=== PATIENT | female | born 1980 | race Caucasian/White ===

== ENCOUNTER 2024-10-08 11:02 | Outpatient (CLI) | payer OTHER, SELFPAY ==
[2024-10-08 09:21] LABS: ALT 27 U/L (14-59); AST 18 U/L (15-37); Albumin 4.1 g/dL (3.4-5.0); Alkaline Phosphatase 69 U/L (46-116); Anion Gap 9.6 mmol/L (3-11); BUN 13 mg/dL (7-18); Bilirubin, Total 0.5 mg/dL (0.2-1.0); CO2 27.4 mmol/L (21.0-32.0); Calcium 8.9 mg/dL (8.5-10.1); Calculated LDL 194 mg/dL (<100); Chloride 103 mmol/L (98-107); Cholesterol 268 mg/dL (<200); Estimated GFR 109.30 (mL/min/1.73m2); Glucose 100 mg/dL (74-106); HDL Cholesterol 59 mg/dL (>or=50); Potassium 4.5 mmol/L (3.5-5.1); Sodium 140 mmol/L (136-145); Total Protein 7.7 g/dL (6.4-8.2); Triglyceride 76 mg/dL (<150)
== END 2024-10-08 11:03 | disposition home or self-care (01) ==
LOC: LBO 11:04
PROVIDERS: PCP Nurse Practitioner Family; Visit Provider Nurse Practitioner Family
DX: Z00.00 Encounter for general adult medical examination without abnormal findings (principal); K58.9 Irritable bowel syndrome, unspecified; N95.1 Menopausal and female climacteric states; G47.30 Sleep apnea, unspecified
CPT/HCPCS: 36415; 80053; 80061

== ENCOUNTER 2024-11-05 15:40 | Outpatient (REF) | payer OTHER, SELFPAY | END 2024-11-05 15:41 | disposition home or self-care (01) | LOC: LBN 15:40 | PROVIDERS: PCP Nurse Practitioner Family; Visit Provider Obstetrics & Gynecology | DX: Z12.4 Encounter for screening for malignant neoplasm of cervix (principal) | CPT/HCPCS: 88142; 87624 ==

== ENCOUNTER 2025-02-03 07:00 | Day surgery (SDC) | payer OTHER, SELFPAY ==
[2025-02-03 07:20] VITALS: BP 132/87; PULSE 81; RESP 16; TEMP 36.2; O2SAT 100
[2025-02-03] MEDS: Lactated Ringers 1,000 ML 80 ML IV (07:34)
[2025-02-03 08:07] VITALS: BMI 31.1
--- NOTE | 2025-02-03 08:07 | ANES.PREOP_ITS ---
General Info Date of Service Date Performed: 02/03/25 Height: 5 ft 7 in Weight: 90.3 kg Body Mass Index (BMI): 31.1 Surgical Procedure: Operation Date: 02/03/25 08:20 Proposed Procedure Side Surgeon avani Lou MD Meds Allergies and Home Medications Allergies Allergy/AdvReac Type Severity Reaction Status Date / Time No Known Allergies Allergy Verified 02/03/25 07:06 Home Medication ?Medication ?Instructions ?Recorded levonorgestrel (Mirena) 1 device intrauterine ONCE 0 11/05/24 estradiol 0.025 mg/24 hr 1 patch transdermal .twice a week 11/24/24 semiweekly transdermal patch 30 days #8 ea (Prudence) Held on 01/22/25. Instructions: Changed by Provider bisacodyl 5 mg tablet,delayed 5 mg PO ONCE #4 tabs 05/12 release (Dulcolax (bisacodyl)) polyethylene glycol 3350 17 17 g PO ONCE #238 grams gram/dose oral powder estradiol 0.05 mg/24 hr semiweekly 1 patch transdermal .twice weekly 01/22/25 transdermal patch (Prudence) #16 ea Current Visit Medications: Current Medications Generic Name Dose Route Start Last Admin Trade Name Freq PRN Reason Stop Dose Admin Ringer's Solution 1,000 mls @ 80 mls/hr 02/03/25 06:00 02/03/25 07:34 IV 02/03/25 23:59 80 mls/hr INFUSION SIRI Administration Sodium Chloride 0 ml 02/03/25 06:00 Normal Saline Flush 10 Ml Syr IV 02/03/25 23:59 PRN PRN Sodium Chloride 0 ml 02/03/25 06:00 Normal Saline 10 Ml Vial IJ 02/03/25 23:59 DIRECTED PRN Sterile Water 0 ml 02/03/25 06:00 Water,Injection,Sterile 10 Ml Vial IJ 02/03/25 23:59 DIRECTED PRN PFSH Active Problems Active Problems: Problem Status Onset Code IUD surveillance Acute Z30.431 Encounter for IUD removal and reinsertion Acute Z30.433 Perimenopausal Acute N95.1 IBS (irritable bowel syndrome) Chronic K58.9 Sleep apnea with use of continuous positive airway pressure (CPAP) Acute G47.30 Arthritis Acute M19.90 Surgical History Surgical History Hx of tonsillectomy History of cholecystectomy Tobacco Smoking/Tobacco Use Status: Never Passive smoking exposure: Yes Second hand exposure: Yes Alcohol Alcohol Intake: current Alcohol intake frequency: 0-2 drinks per day Alcohol type: wine Substance Use Substance use: Never Substance use type: does not use Prental History History 6 Para Hx # Term Pregnancies 3 Multiple births Hx # Pregnancies Ectopic pregnancies AB induced Hx Number of Living Children 3 AB spontaneous 3 Past Pregnancies Del. Date GA/Weeks # Preg Succ Route Wgt Sex Labor Lgth Anesth esia Location [facility] 11/30/02 40 No Yes vaginal 2806.603 g Female Seth [facility] 04/18/05 38 No Yes vaginal 3345.244 g Female Seth [facility] 03/25/07 40 No Yes vaginal 2778.253 g Female [facility] Vital Signs and Lab Results Vital Signs Most Recent Vital Signs in EMR: Most Recent Vital Signs Temp Pulse Resp BP Pulse Ox 36.2 C L 81 16 132/87 100 02/03/25 07:20 02/03/25 07:20 02/03/25 07:20 02/03/25 07:20 02/03/25 07:20 Anesthesia Assessment and Plan Anesthesia History Personal History: PONV Family History: Other Exercise Tolerance Exercise Tolerance: Metabolic Equivalents>4 Pertinent Negatives Pertinent Negatives: No Symptoms of GERD Cardiac & Pulmonary Exam Cardiac Exam: Normal S1/S2 Heart Sounds Pulmonary Exam: Clear Bilateral Breath Sounds Implantable Cardiac Device Does patient have a Pacemaker or an ICD?: No Airway Exam Known Difficult Airway: No Mallampati Class: 2 Mouth Opening: Normal (> 3cm) Thyromental Distance: Greater than 3 cm Neck Range of Motion: Full ROM Neck Circumference: Normal Teeth Condition: Normal Dentition ASA Classification ASA Score: ASA 2 Emergency Case?: No NPO Status NPO Status: NPO Clears >2 hours, Solids >8 hours Status Status: Negative HCG Anesthesia Plan Resuscitation Status: Full Code Anesthesia Technique: General Anesthesia Airway Planned: Natural Airway Monitors Used: Standard Monitors
--- NOTE | 2025-02-03 08:45 | RT.EKG_ITS ---
APPROVED REPORT Exam: Resting ECG Reason for Exam: Possible new bundle branch Patient Location: O HR:72 bpm ECG Measurements Heart Rate 72 AXIS FL 200 P 40 QRSd 156 QRS -55 QT 475 T 94 QTc 520 Conclusion Sinus rhythm...normal P axis, V-rate 60- 99 Left atrial enlargement...P, P'>60mS, <-0.15mV V1 Left bundle branch block...QRSd>120, broad/notched R
[2025-02-03 08:56] VITALS: BP 111/66; PULSE 74; RESP 16; TEMP 36.4; O2SAT 98
--- NOTE | 2025-02-03 09:02 | W.PM.DSUDISC ---
Date of service: 02/03/25 Discharge Plan Disposition Patient Disposition: Home Condition: Good Discharge Details Reason For Visit: Screening colonoscopy Attending Provider: Tanya Lou Primary Care Provider: Cori Rojas Home Meds and New Rx's Prescriptions: Continued estradiol [Prudence] 0.025 mg/24 hr patch semiweekly 1 patch transdermal .twice a week 30 Days Qty: 8 1RF estradiol [Prudence] 0.05 mg/24 hr patch semiweekly 1 patch transdermal .twice weekly Qty: 16 2RF Mirena 21 mcg/24hr (up to 8 yrs) 52 mg intrauterine device 1 device intrauterine ONCE Rx Instructions: as a single dose Discontinued bisacodyl [Dulcolax (bisacodyl)] 5 mg tablet,delayed release (DR/EC) 5 mg PO ONCE Qty: 4 0RF Rx Instructions: Take per colonoscopy instructions provided by ordering providers office polyethylene glycol 3350 17 gram/dose powder 17 g PO ONCE Qty: 238 0RF Rx Instructions: Take per colonoscopy instructions provided by ordering providers office Discharge Instructions Additional Instructions: Your colonoscopy went well today. He did not have any evidence of polyps or abnormalities of the colon. Your prep was excellent. The recommendation would be to have a repeat colonoscopy in 10 years. Please contact the general surgery office if you have further questions or concerns. 1. If tolerated, consume a soft, low fiber diet for 1-2 days. 2[address] Do not drive, drink alcohol, operate machinery, make critical decisions, or do activities that require coordination or balance for 24 hours. 3. Because air was put into your colon during the procedure, expelling air from your rectum (passing gas or farting) is normal. 4. You may not have a bowel movement for 1-3 days because of the colonoscopy prep. This is normal. 5. Go directly to the emergency room if you notice any of the following: Develop chills (warm to touch), or if you have a thermometer and your temperature is above 101 Difficulty breathing or difficultly swallowing Persistent vomiting Severe abdominal pain, other than gas cramps Severe chest pain Black, tarry stools Any bleeding ? exceeding one tablespoon 6. Call your physician if the site where your intravenous was started becomes red, swollen, painful, and warm to touch. 7. Your physician has reviewed your pre-procedure medications. Please continue to take those medications as previously ordered. You will be given specific information/education regarding any changes to your medications before leaving. Stand Alone Forms: Portal Information Activity:: Activity as Tolerated Diet:: As Tolerated Discharge Orders Discharge Orders: Discharge Order (Routine); Ordered 02/03/25 Ordered By: Tanya Lou
--- NOTE | 2025-02-03 09:04 | W.COLOREPORT ---
Date of service: 02/03/25 Time of Service: 09:04 Colonoscopy Report Date of procedure: 02/03/25 Pre-op diagnosis general: Screening colonoscopy Post-op diagnosis procedure note: same Procedure: Colonosocpy Surgeon: Tanya Lou Anesthesia Type: General:No Airway Estimated blood loss (mL): 0 Pathology: none sent Complications: None Disposition: PACU Indications: Patient is a 45-year-old female who presents for screening colonoscopy. She denies any family history of colon cancer or changes in her bowel habits. Prep: Miralax/Dulcolax Procedure Start Time: 08:20 Procedure End Time: 08:46 Retraction Time: 5 Findings: Tortuous colonoscopy with significant looping. Otherwise normal colonoscopy. Procedure Description: Informed consent was obtained. The patient was taken to the endoscopy suite and placed in the left lateral decubitus position. After adequate intravenous sedation, digital rectal exam was performed, which was normal. A colonoscope was inserted into the rectum and negotiated to the cecum with difficulty due to significant looping and tortuous colon. The ileocecal valve and appendiceal orifice were identified. The entire colonic mucosa was then carefully circumferentially inspected upon slow withdrawal of the scope. The entire colon appeared normal. Retroflexion in the rectum was unremarkable. The patient tolerated the procedure well with no complications. Postoperatively, the patient was transferred to the recovery room in stable condition. [place] Bowel Prep [place] Bowel Prep Right Colon: 3 Left Colon: 3 Transverse Colon: 3 Total Score: 9
--- NOTE | 2025-02-03 09:27 | W.ANESPOSTOP ---
Postoperative Evaluation Date, Time and Location Date Performed: 02/03/25 Time Performed: 09:27 Patient Location: Day Surgery Unit Vital Signs Most Recent Imported Vital Signs: Most Recent Vital Signs Temp Pulse Resp BP Pulse Ox 36.4 C L 74 16 111/66 98 02/03/25 08:56 02/03/25 08:56 02/03/25 08:56 02/03/25 08:56 02/03/25 08:56 Pain Score Most Recent Pain Score: Most Recent Pain Score Pain Level 3 02/03/25 07:20 Assessment Mental Status: Awake (Alert & Oriented to Patient Baseline) Airway and Respiratory Function: Patent airway with normal (patient baseline) respiratory exam Cardiovascular Function: Hemodynamically Stable (Patient with new to her BBB. 12-lead EKG obtained and messaged PCP requesting follow-up) Hydration Status: Adequately Hydrated Nausea & Vomiting: No Nausea or Vomiting Pain: Pain is tolerable per patient Peripheral Nerve Block: Patient did not receive a nerve block Teaching Patient Teaching: Advised to seek followup for the following concerns (See explanation) Concerns: Other (Newly observed BBB)
[2025-02-03 09:32] VITALS: BP 112/72; PULSE 71; RESP 18; TEMP 36.4; O2SAT 99
== END 2025-02-03 09:55 | disposition home or self-care (01) ==
PROVIDERS: PCP Nurse Practitioner Family; Visit Provider Student in an Organized Health Care Education/Training Program
PROC: 0DJD8ZZ Inspection of Lower Intestinal Tract, Via Natural or Artificial Opening Endoscopic (ICD-10-PCS; CPT 45378; principal; 2025-02-03 08:15)
DX: Z12.11 Encounter for screening for malignant neoplasm of colon (principal); G47.30 Sleep apnea, unspecified
CPT/HCPCS: 45378; 93005; 93010; J2405; J2704